=== PATIENT | female | born 1965 | race Caucasian/White ===

== ENCOUNTER 2017-08-20 17:24 | Emergency (ER) | payer BC ==
[~2017-08-20] VITALS: Ht 167.6 cm; Wt 84.8 kg
[~2017-08-20 17:24] MED LIST: CALC500T PO; MAGN250T22 PO
[2017-08-20 17:32] VITALS: TEMP 36.7; Ht 167.6 cm; Wt 84.8 kg
--- NOTE | 2017-08-20 17:52 | EMERGENCY ROOM VISIT NOTE ---
History Report prepared by Dimitris: Justin Owen Under the Supervision of: Dr. Uzair Cam M.D. First contact with patient: 17:38 Chief Complaint: CARDIAC ASSESSMENT Stated Complaint: HEART EPISODES History of Present Illness The patient is a 51 year old female who presents to the Emergency Room with complaints of intermittent heart palpitations that began today. The patient states that she has been having episodes throughout the day that feels as if she has been "falling from a height". She states that the feeling first started when she was in the car and came back when she was sitting in the house. She reports that the episodes have been becoming more frequent this afternoon. The patient states that she has also been experiencing lightheadedness. She reports that she has been experiencing a cough, but reports that this is because she recently had a cold. The patient states that she has had heart flutters in the past, but states that these episodes are not similar. She states that she followed up with a slide attendant for her flutters and denies taking medications. She denies shortness of breath, urinary symptoms, diarrhea, vomiting, change in diet, and caffeine or alcohol use. Source of History: patient Onset: today Position: other (global) Quality: other ("feels like falling from a height") Timing: intermittent Associated Symptoms: + cough, No SOB, No vomiting, No diarrhea, No urinary symptoms Review of Systems See HPI for pertinent positives & negatives. A total of 10 systems reviewed and were otherwise negative. Past Medical & Surgical Medical Problems: (1) Fluttering sensation of heart Family History Cancer Social History Smoking Status: Never Smoker Alcohol Use: occasionally Marital Status: Housing Status: lives with family Occupation Status: employed Current/Historical Medications Scheduled Calcium-Magnesium W/ Vitamin D (Calcium/Magnesium/Vitamin), 1 TAB PO HS [Calcium D Glucarate], 1 CAP PO TID [[id number]], 1 CAP PO TID Scheduled PRN Lorazepam (Lorazepam), 0.5 MG PO DAILY PRN for Anxiety Zolpidem Tartrate (Zolpidem Tartrate), 5 MG PO HS PRN for Sleep Allergies Coded Allergies: Codeine (Verified Allergy, Mild, VOMITING, 11/20/15) Penicillins (Verified Allergy, Mild, RASH, 11/20/15) Ciprofloxacin (Verified Allergy, Unknown, DIZZINESS, 11/12/15) Quinolones (Verified Allergy, Unknown, HIVES, 11/20/15) Physical Exam Vital Signs Date Time Temp Pulse Resp B/P (MAP) Pulse Ox O2 Delivery O2 Flow Rate FiO2 08/20/17 19:06 72 18 145/81 97 Room Air 08/20/17 18:26 97 Room Air 08/20/17 18:04 77 08/20/17 17:59 97 Room Air 08/20/17 17:32 36.7 73 16 161/88 98 Room Air Physical Exam GENERAL: Patient is in no acute distress. HEENT: No acute trauma, normocephalic atraumatic, mucous membranes moist, no nasal congestion, no scleral icterus. NECK: No stridor, no adenopathy, no meningismus, trachea is midline. LUNGS: Clear to auscultation bilaterally, no wheeze, no rhonchi, breath sounds equal. HEART: Slight systolic murmur, regular rate and rhythm. ABDOMEN: Soft, nontender, bowel sounds positive, no hernias, no peritonitis. EXTREMITIES: No cyanosis or edema, full range of motion of all the joints without pain or difficulty, no signs for acute trauma. NEUROLOGIC: Oriented x 3, no acute motor or sensory deficits, no focal weakness. SKIN: No rash, no jaundice, no diaphoresis. Medical Decision & Procedures ER Provider Diagnostic Interpretation: X-ray results as stated below per interpretation by me and the radiologist: CHEST ONE VIEW PORTABLE CLINICAL HISTORY: 51 years-old Female presenting with EVALUATE ALTERED MENTAL STATUS/WEAKNESS. TECHNIQUE: Portable upright AP view of the chest was obtained. COMPARISON: Chest CT from 09/06/2009 and chest x-ray from 09/06/2009. FINDINGS: Cardiomediastinal silhouette normal. Lungs and pleural spaces clear. Osseous structures normal. Upper abdomen normal. IMPRESSION: 1. No acute cardiopulmonary disease. Electronically signed by: Carlitos Escalante M.D. 08/20/2017 7:02 PM Dictated Date/Time: 08/20/2017 7:01 PM Laboratory Results 08/20/17 17:57 Red Blood Count 4.06, Mean Corpuscular Volume 91.9, Mean Corpuscular Hemoglobin 31.3, Mean Corpuscular Hemoglobin Concent 34.0, Mean Platelet Volume 10.4, Neutrophils (%) (Auto) 50.4, Lymphocytes (%) (Auto) 41.1, Monocytes (%) (Auto) 5.1, Eosinophils (%) (Auto) 2.6, Basophils (%) (Auto) 0.7, Neutrophils # (Auto) 3.87, Lymphocytes # (Auto) 3.15, Monocytes # (Auto) 0.39, Eosinophils # (Auto) 0.20, Basophils # (Auto) 0.05 08/20/17 17:57 Test 08/20/17 17:57 08/20/17 18:01 08/20/17 18:15 White Blood Count 7.67 K/uL (4.8-10.8) Red Blood Count 4.06 M/uL (4.2-5.4) Hemoglobin 12.7 g/dL (12.0-16.0) Hematocrit 37.3 % (37-47) Mean Corpuscular Volume 91.9 fL (80-100) Mean Corpuscular Hemoglobin 31.3 pg (25-34) Mean Corpuscular Hemoglobin Concent 34.0 g/dl (32-36) Platelet Count 296 K/uL (130-400) Mean Platelet Volume 10.4 fL (7.4-10.4) Neutrophils (%) (Auto) 50.4 % Lymphocytes (%) (Auto) 41.1 % Monocytes (%) (Auto) 5.1 % Eosinophils (%) (Auto) 2.6 % Basophils (%) (Auto) 0.7 % Neutrophils # (Auto) 3.87 K/uL (1.4-6.5) Lymphocytes # (Auto) 3.15 K/uL (1.2-3.4) Monocytes # (Auto) 0.39 K/uL (0.11-0.59) Eosinophils # (Auto) 0.20 K/uL (0-0.5) Basophils # (Auto) 0.05 K/uL (0-0.2) RDW Standard Deviation 44.6 fL (36.4-46.3) RDW Coefficient of Variation 13.4 % (11.5-14.5) Immature Granulocyte % (Auto) 0.1 % Immature Granulocyte # (Auto) 0.01 K/uL (0.00-0.02) Anion Gap 6.0 mmol/L (3-11) Est Creatinine Clear Calc Drug Dose 74.3 ml/min Estimated GFR () 78.3 Estimated GFR (Non- 67.5 BUN/Creatinine Ratio 24.0 (10-20) Calcium Level 8.8 mg/dl (8.5-10.1) Magnesium Level 2.2 mg/dl (1.8-2.4) Total Bilirubin 0.2 mg/dl (0.2-1) Aspartate Amino Transf (AST/SGOT) 15 U/L (15-37) Alanine Aminotransferase (ALT/SGPT) 23 U/L (12-78) Alkaline Phosphatase 100 U/L (45-117) Total Protein 7.4 gm/dl (6.4-8.2) Albumin 3.7 gm/dl (3.4-5.0) Globulin 3.7 gm/dl (2.5-4.0) Albumin/Globulin Ratio 1.0 (0.9-2) Thyroid Stimulating Hormone (TSH) 2.800 uIu/ml (0.300-4.500) Free Thyroxine 0.86 ng/dl (0.80-1.60) Bedside Troponin I < 0.030 ng/ml (0-0.045) Urine Color YELLOW Urine Appearance CLEAR (CLEAR) Urine pH 7.0 (4.5-7.5) Urine Specific [place] 1.016 (1.000-1.030) Urine Protein NEG (NEG) Urine Glucose (UA) NEG (NEG) Urine Ketones NEG (NEG) Urine Occult Blood NEG (NEG) Urine Nitrite NEG (NEG) Urine Bilirubin NEG (NEG) Urine Urobilinogen NEG (NEG) Urine Leukocyte Esterase SMALL (NEG) Urine WBC (Auto) 1-5 /hpf (0-5) Urine RBC (Auto) 0-4 /hpf (0-4) Urine Hyaline Casts (Auto) 1-5 /lpf (0-5) Urine Epithelial Cells (Auto) 20-30 /lpf (0-5) Urine Bacteria (Auto) NEG (NEG) Laboratory results reviewed by me. ECG Indication: palpitations Rate (beats per minute): 71 Rhythm: normal sinus Findings: no acute ischemic change, no ectopy ED Course 1738: The patient was evaluated in room B03B. A complete history and physical exam was performed. 1917: Reevaluated the patient. Discussed results and discharge instructions: She verbalized understanding and agreement. The patient is ready for discharge. Medical Decision The patient is a 51 year old female who presents to the Emergency Room with complaints of intermittent heart palpitations that began today. Differential diagnoses considered include electrolyte imbalance, anemia, dysrhythmia, PVC or PAC, anxiety, thyroid disorder. There is no leukocytosis or concerning anemia. No significant electrolyte abnormality, kidney failure, hepatitis. The patient appears to be in a euthyroid state. Urinalysis does not show infection. EKG shows a normal sinus rhythm, no acute ischemia. Cardiac enzyme testing 1 is not consistent with acute cardiac injury. Chest film does not show pneumonia, CHF or pneumothorax. There is no significant cardiomegaly. On the monitor, the patient has had some PACs, this may be what she is feeling. Her workup is otherwise benign, she looks well, she is not toxic. She has been reassured. She is being discharged home to return for worsening symptoms. Medication Reconcilliation Current Medication List: was personally reviewed by me Blood Pressure Screening Patient's blood pressure: Elevated blood pressure Blood pressure disposition: Elevated BP felt to be situational Impression Primary Impression: Palpitations Scribe Attestation The scribe's documentation has been prepared under my direction and personally reviewed by me in its entirety. I confirm that the note above accurately reflects all work, treatment, procedures, and medical decision making performed by me. Departure Information Dispostion Home / Self-Care Referrals Sonya Lane (PCP) Forms IMPORTANT VISIT INFORMATION Patient Instructions My [facility] Additional Instructions rest fluids see daisy lino for a recheck this week return if worsening all lab testing and imaging was ok today you had PAC's today on the monitor
[2017-08-20 17:59] VITALS: O2SAT 97
[2017-08-20 18:09] LABS: BASO % 0.7 %; BASO ABS # 0.05 K/uL (0-0.2); EOS % 2.6 %; HEMATOCRIT 37.3 % (37-47); HEMOGLOBIN 12.7 g/dL (12.0-16.0); IG# 0.01 K/uL (0.00-0.02); LYMPH % 41.1 %; LYMPH ABS # 3.15 K/uL (1.2-3.4); MEAN CELL VOLUME 91.9 fL (80-100); MEAN CORPUSCULAR HEMOGLOBIN 31.3 pg (25-34); MEAN PLATELET VOLUME 10.4 fL (7.4-10.4); MONO % 5.1 %; MONO ABS # 0.39 K/uL (0.11-0.59); NEUT % 50.4 %; NEUT ABS # 3.87 K/uL (1.4-6.5); PLATELET COUNT 296 K/uL (130-400); RED CELL DISTRIBUTION WIDTH CV 13.4 % (11.5-14.5); RED CELL DISTRIBUTION WIDTH SD 44.6 fL (36.4-46.3); WHITE BLOOD COUNT 7.67 K/uL (4.8-10.8)
[2017-08-20 18:27] LABS: ALBUMIN 3.7 gm/dl (3.4-5.0); CALCIUM 8.8 mg/dl (8.5-10.1); CREATININE 0.96 mg/dl (0.60-1.20); POTASSIUM 3.8 mmol/L (3.5-5.1)
[2017-08-20] MEDS ORDERED: CALC-206 PO (18:31)
[2017-08-20] MEDS ORDERED: ATV5X PO (18:31)
[2017-08-20] MEDS ORDERED: CALCIUM D GLUCARATE PO (18:31)
[2017-08-20] MEDS ORDERED: [UNRECOGNIZED DRUG - OTHER] PO (18:31)
[2017-08-20] MEDS ORDERED: ZOLP5TAB6 PO (18:31)
[2017-08-20 18:38] LABS: TOTAL PROTEIN 7.4 gm/dl (6.4-8.2)
--- NOTE | 2017-08-20 19:03 | DIAGNOSTIC IMAGING REPORT ---
CHEST ONE VIEW PORTABLE CLINICAL HISTORY: 51 years-old Female presenting with EVALUATE ALTERED MENTAL STATUS/WEAKNESS. TECHNIQUE: Portable upright AP view of the chest was obtained. COMPARISON: Chest CT from 09/06/2009 and chest x-ray from 09/06/2009. FINDINGS: Cardiomediastinal silhouette normal. Lungs and pleural spaces clear. Osseous structures normal. Upper abdomen normal. IMPRESSION: 1. No acute cardiopulmonary disease. Electronically signed by: Carlitos Escalante M.D. 08/20/2017 7:02 PM Dictated Date/Time: 08/20/2017 7:01 PM
[2017-08-20 19:06] VITALS: BP 145/81; PULSE 72; O2SAT 97
[2017-10-02] MEDS ORDERED: ACET300T3 PO (17:28)
== END 2017-08-20 19:24 | disposition home or self-care (01) ==
LOC: C.EDB 17:25
DX: R00.2 Palpitations (principal)

== ENCOUNTER 2017-10-02 14:07 | Emergency (ER) | payer BC ==
[~2017-10-02] VITALS: Ht 165.1 cm; Wt 81.5 kg
[~2017-10-02 14:07] MED LIST changes: +ATV5X PO; +CALC-206 PO; -CALC500T PO; +CALCIUM D GLUCARATE PO; -MAGN250T22 PO; +ZOLP5TAB6 PO; +[UNRECOGNIZED DRUG - OTHER] PO
[2017-10-02 14:54] VITALS: TEMP 37; Ht 165.1 cm; Wt 81.5 kg
[2017-10-02] MEDS ORDERED: MoRPHine SULFATE 10 MG/ML CARP/VIAL IV STA (15:48)
[2017-10-02] MEDS ORDERED: SODIUM CHLORIDE 0.9% 500ML 500 ML IV STA (15:48)
[2017-10-02] MEDS ORDERED: ONDANSETRON INJ 2 MG/ML 2 ML VIAL IV STA (15:48)
[2017-10-02 16:26] LABS: BASO % 0.3 %; BASO ABS # 0.03 K/uL (0-0.2); EOS % 1.1 %; EOS ABS # 0.11 K/uL (0-0.5); HEMATOCRIT 42.5 % (37-47); HEMOGLOBIN 14.7 g/dL (12.0-16.0); IG# 0.02 K/uL (0.00-0.02); LYMPH % 26.2 %; LYMPH ABS # 2.57 K/uL (1.2-3.4); MEAN CELL VOLUME 91.4 fL (80-100); MEAN CORPUSCULAR HEMOGLOBIN 31.6 pg (25-34); MEAN CORPUSCULAR HGB CONC 34.6 g/dl (32-36); MEAN PLATELET VOLUME 10.8 fL (7.4-10.4); MONO % 4.6 %; MONO ABS # 0.45 K/uL (0.11-0.59); NEUT % 67.6 %; NEUT ABS # 6.64 K/uL (1.4-6.5); PLATELET COUNT 300 K/uL (130-400); RED CELL DISTRIBUTION WIDTH CV 13.5 % (11.5-14.5); RED CELL DISTRIBUTION WIDTH SD 44.3 fL (36.4-46.3); WHITE BLOOD COUNT 9.82 K/uL (4.8-10.8)
--- NOTE | 2017-10-02 16:52 | DIAGNOSTIC IMAGING REPORT ---
HEAD WITHOUT CONTRAST (CT) CT DOSE: 601.98 mGy.cm HISTORY: Mental status change JEAN/facial pain TECHNIQUE: Multiaxial CT images of the head were performed without the use of intravenous contrast. A dose lowering technique was utilized adhering to the principles of ALARA. Comparison: 07/10/2008 Findings: The paranasal sinuses and mastoid air cells are clear. The calvarium and skull base are intact. The ventricles and sulci are within normal limits. There is no mass, hematoma, midline shift, or acute infarct. Impression: No acute intracranial abnormality. The above report was generated using voice recognition software. It may contain grammatical, syntax or spelling errors. Electronically signed by: Rafi Gimenez M.D. 10/02/2017 4:50 PM Dictated Date/Time: 10/02/2017 4:48 PM
[2017-10-02 16:54] LABS: CALCIUM 9.3 mg/dl (8.5-10.1); CREATININE 0.82 mg/dl (0.60-1.20); POTASSIUM 3.8 mmol/L (3.5-5.1)
[2017-10-02] MEDS ORDERED: ACET-749 PO (17:28)
[2017-10-02 17:50] VITALS: BP 164/81; PULSE 74; O2SAT 96
--- NOTE | 2017-10-02 19:30 | EMERGENCY ROOM VISIT NOTE ---
History Report prepared by Dimitris: Juan Francisco Tinajero Under the Supervision of: Dr. Sergo Mak D.O. First contact with patient: 15:30 Chief Complaint: SKIN PROBLEM Stated Complaint: SHINGLES IN MY FACE, SEVERE PAIN History of Present Illness The patient is a 52 year old female who presents to the Emergency Room with complaints of left sided face pain that began two days ago. She rates her pain a 10/10 in severity. She denies any known past medical history. When her pain began, her found a small rash to the left side of the patient's mouth and nose which is not present at the moment. She describes her pain as a burning sensation that is hypersensitive and itchy. She then presented to her PCP. She received a negative influenza test and was told that it was probably shingles. She referred the patient to the ER if her symptoms persist without giving the patient anything. She then went to her Dentist who gave her a negative workup. She currently has a headache. Pt denies neck pain, change in vision, fevers, chest pain, shortness of breath, nausea, vomiting, abdominal pain, diarrhea, pain with urination, and melena. Source of History: patient Onset: two days ago Position: other (Right sided face) Symptom Intensity: 10/10 Quality: burning Timing: constant Associated Symptoms: + headache, No fevers, No neck pain, No chest pain, No SOB, No nausea, No vomiting, No abdominal pain, No melena, No diarrhea, No urinary symptoms, No rash Note: She is experiencing itching and hypersensitivity to the area as well. Review of Systems See HPI for pertinent positives & negatives. A total of 10 systems reviewed and were otherwise negative. Past Medical & Surgical Medical Problems: (1) Fluttering sensation of heart Family History Cancer Social History Smoking Status: Never Smoker Alcohol Use: occasionally Marital Status: Housing Status: lives with family Occupation Status: employed Current/Historical Medications Scheduled Calcium-Magnesium W/ Vitamin D (Calcium/Magnesium/Vitamin), 1 TAB PO HS Scheduled PRN Acetaminophen/Codeine (Tylenol W/Codeine #3), 1 TABS PO TID PRN for Pain Allergies Coded Allergies: Codeine (Verified Allergy, Mild, VOMITING, 10/02/17) PT HAS TAKEN TYLENOL W/CODEINE WITH NO PROBLEMS Penicillins (Verified Allergy, Mild, RASH, 11/20/15) Ciprofloxacin (Verified Allergy, Unknown, DIZZINESS, 11/12/15) Quinolones (Verified Allergy, Unknown, HIVES, 11/20/15) Physical Exam Vital Signs Date Time Temp Pulse Resp B/P (MAP) Pulse Ox O2 Delivery O2 Flow Rate FiO2 10/02/17 17:50 74 18 164/81 96 10/02/17 16:16 85 18 153/94 97 Room Air 10/02/17 14:54 37.0 97 18 155/86 96 Room Air Physical Exam GENERAL: Sitting up in bed holding left side of her face, alert, tearful appearing, well nourished, no distress, non-toxic EYE EXAM: normal conjunctiva. PERRL and EOM's grossly intact. OROPHARYNX: no exudate, no erythema, lips, buccal mucosa, and tongue normal and mucous membranes are moist NECK: supple, no nuchal rigidity, no adenopathy, non-tender LUNGS: Clear to auscultation. Normal chest wall mechanics HEART: no murmurs, S1 normal and S2 normal ABDOMEN: abdomen soft, non-tender, normo-active bowel sounds, no masses, no rebound or guarding. BACK: Back is symmetrical on inspection and there is no deformity, no midline tenderness, no CVA tenderness. SKIN: no rashes and no bruising UPPER EXTREMITIES: upper extremities are grossly normal. LOWER EXTREMITIES: No pitting edema. NEURO EXAM: Normal sensorium, cranial nerves II-XII intact, normal speech, no gross weakness of arms, no gross weakness of legs. No drift. Finger to nose intact. Gross sensation intact. Medical Decision & Procedures ER Provider Diagnostic Interpretation: Radiology results as stated below per my review and the radiologist's interpretation: HEAD WITHOUT CONTRAST (CT) CT DOSE: 601.98 mGy.cm HISTORY: Mental status change JEAN/facial pain TECHNIQUE: Multiaxial CT images of the head were performed without the use of intravenous contrast. A dose lowering technique was utilized adhering to the principles of ALARA. Comparison: 07/10/2008 Findings: The paranasal sinuses and mastoid air cells are clear. The calvarium and skull base are intact. The ventricles and sulci are within normal limits. There is no mass, hematoma, midline shift, or acute infarct. Impression: No acute intracranial abnormality. The above report was generated using voice recognition software. It may contain grammatical, syntax or spelling errors. Electronically signed by: Rafi Gimenez M.D. 10/02/2017 4:50 PM Dictated Date/Time: 10/02/2017 4:48 PM Laboratory Results 10/02/17 16:08 Red Blood Count 4.65, Mean Corpuscular Volume 91.4, Mean Corpuscular Hemoglobin 31.6, Mean Corpuscular Hemoglobin Concent 34.6, Mean Platelet Volume 10.8, Neutrophils (%) (Auto) 67.6, Lymphocytes (%) (Auto) 26.2, Monocytes (%) (Auto) 4.6, Eosinophils (%) (Auto) 1.1, Basophils (%) (Auto) 0.3, Neutrophils # (Auto) 6.64, Lymphocytes # (Auto) 2.57, Monocytes # (Auto) 0.45, Eosinophils # (Auto) 0.11, Basophils # (Auto) 0.03 10/02/17 16:08 Test 10/02/17 16:08 White Blood Count 9.82 K/uL (4.8-10.8) Red Blood Count 4.65 M/uL (4.2-5.4) Hemoglobin 14.7 g/dL (12.0-16.0) Hematocrit 42.5 % (37-47) Mean Corpuscular Volume 91.4 fL (80-100) Mean Corpuscular Hemoglobin 31.6 pg (25-34) Mean Corpuscular Hemoglobin Concent 34.6 g/dl (32-36) Platelet Count 300 K/uL (130-400) Mean Platelet Volume 10.8 fL (7.4-10.4) Neutrophils (%) (Auto) 67.6 % Lymphocytes (%) (Auto) 26.2 % Monocytes (%) (Auto) 4.6 % Eosinophils (%) (Auto) 1.1 % Basophils (%) (Auto) 0.3 % Neutrophils # (Auto) 6.64 K/uL (1.4-6.5) Lymphocytes # (Auto) 2.57 K/uL (1.2-3.4) Monocytes # (Auto) 0.45 K/uL (0.11-0.59) Eosinophils # (Auto) 0.11 K/uL (0-0.5) Basophils # (Auto) 0.03 K/uL (0-0.2) RDW Standard Deviation 44.3 fL (36.4-46.3) RDW Coefficient of Variation 13.5 % (11.5-14.5) Immature Granulocyte % (Auto) 0.2 % Immature Granulocyte # (Auto) 0.02 K/uL (0.00-0.02) Erythrocyte Sedimentation Rate 29 mm/hr (0-21) Anion Gap 10.0 mmol/L (3-11) Est Creatinine Clear Calc Drug Dose 82.7 ml/min Estimated GFR () 94.0 Estimated GFR (Non- 81.1 BUN/Creatinine Ratio 16.9 (10-20) Calcium Level 9.3 mg/dl (8.5-10.1) Laboratory results per my review. Medications Administered Medications (Trade) Dose Ordered Sig/Wes Route Start Time Stop Time Status Last Admin Dose Admin Sodium Chloride 500 ml @ 999 mls/hr Q31M STAT IV 10/02/17 15:48 10/02/17 16:18 DC 10/02/17 16:15 999 MLS/HR Ondansetron HCl (Zofran Inj) 4 mg NOW STAT IV 10/02/17 15:48 10/02/17 15:49 DC 10/02/17 16:15 4 MG Morphine Sulfate (MoRPHine SULFATE INJ) 6 mg NOW STAT IV 10/02/17 15:48 10/02/17 15:49 DC 10/02/17 16:16 6 MG ED Course ED COURSE: Vital signs were reviewed and showed situational hypertension The patients medical record was reviewed The above diagnostic studies were performed and reviewed. ED treatments and interventions as stated above. 1530: The patient was evaluated in room B8. A complete history and physical examination was performed. 1548: Ordered Morphine Sulfate 6 mg IV, Zofran Inj 4 mg IV, Sodium Chloride 500 ml @ 999 mls/hr IV 1725: Upon reevaluation, the patient is resting and feeling a lot better. I discussed my findings with the patient and she understands and agrees with the treatment plan. Based on the patients age, coexisting illnesses, exam and lab findings the decision to treat as an outpatient was made. The patient remained stable while under my care. The patient appeared well at the time of discharge. Medical Decision Differential diagnoses include zoster, trauma, fracture, brain bleed, temporal arteritis, and trigeminal neuralgia. Patient is a 52-year-old female who presents to ER for severe left facial pain which has been going on since this past Tuesday. She followed up with her PCP and dentistry. Both workups were unremarkable. Her skin is extremely hypersensitive. She notes that she had a rash which has now resolved over the course of 1-2 days. On exam there is no signs of shingles. I do question shingles first trigeminal neuralgia. CBC and BMP were unremarkable. SED was slightly elevated at 29. Do not believe that this is temporal arteritis. Based on her symptoms I do favor this is likely related to a general neuralgia. She was given IV morphine and felt significant better. I discharged her with Tylenol 3 and instructed to follow-up with PCP in the next 48 hours. There was no change in vision or eye pain. Discussed with Pt concerning signs and symptoms to watch out for. Pt was instructed to follow up with their PCP and discussed with the patient their option to return to the ED at anytime for persistent or worsening symptoms. The appropriate anticipatory guidance and out- patient management, including indications for return to the emergency department , were explained at length to the patient and understood. [place] Drug Monitoring Program Search Results: patient reviewed within database, no issues identified Medication Reconcilliation Current Medication List: was personally reviewed by me Blood Pressure Screening Patient's blood pressure: Elevated blood pressure Blood pressure disposition: Elevated BP felt to be situational Impression Primary Impression: Trigeminal neuralgia of left side of face Scribe Attestation The scribe's documentation has been prepared under my direction and personally reviewed by me in its entirety. I confirm that the note above accurately reflects all work, treatment, procedures, and medical decision making performed by me. Departure Information Dispostion Home / Self-Care Prescriptions Acetaminophen/Codeine (Tylenol W/Codeine #3) 300 Mg/30 Mg Tab 1 TABS PO TID Y for Pain, #10 TAB Prov: Sergo Mak, 10/02/[address] (PCP) Forms HOME CARE DOCUMENTATION FORM, IMPORTANT VISIT INFORMATION, WORK / SCHOOL INSTRUCTIONS Patient Instructions ED Neuralgia Trigeminal, My [facility] Additional Instructions Please follow up with your primary care doctor with in the next 24 hours. Any worsening of your symptoms, please return to the ED immediately. This includes any fevers greater than 100.4, worsening pain, chest pain, shortness breath, persistent nausea, vomiting, unable to eat or drink, or any other concerning signs or symptoms from your standpoint. You were given medications during this visit that will inhibit your ability to drive, operate machinery and work. Please do NOT drive, operate machinery or work for the next 12hrs. You were also given a prescription for a narcotic. While taking this medication you should also not drive, operate machinery and or work. Please make sure you follow up with your PCP over the course of the next 48 hours. Your symptoms could be related to trigeminal neuralgia versus zoster but since you have no rashes at this time I favor thid is less likely zoster.
[2017-10-03] MEDS ORDERED: [UNRECOGNIZED DRUG - OTHER] (21:46)
[2017-10-03] MEDS ORDERED: INDOPOW PO (21:46)
[2017-10-03] MEDS ORDERED: CHOL1TAB52 PO (21:46)
[2017-10-03] MEDS ORDERED: [UNRECOGNIZED DRUG - OTHER] PO (21:46)
[2017-10-03] MEDS ORDERED: [UNRECOGNIZED DRUG - OTHER] PO (21:46)
== END 2017-10-02 17:51 | disposition home or self-care (01) ==
LOC: C.EDB 16:10
DX: G50.0 Trigeminal neuralgia (principal); Z80.9 Family history of malignant neoplasm, unspecified

== ENCOUNTER 2017-10-03 19:19 | Emergency (ER) | payer BC ==
[~2017-10-03] VITALS: Ht 167.6 cm; Wt 81.4 kg
[~2017-10-03 19:19] MED LIST changes: +ACET-749 PO; -ATV5X PO; -CALCIUM D GLUCARATE PO; -ZOLP5TAB6 PO; -[UNRECOGNIZED DRUG - OTHER] PO
[2017-10-03 20:00] VITALS: TEMP 36.9; Ht 167.6 cm; Wt 81.4 kg
[2017-10-03] MEDS ORDERED: DICYCLOMINE HCL 10 MG/ML 2 ML AMP IM STA (21:14)
[2017-10-03] MEDS ORDERED: METOCLOPRAMIDE HCL INJ 5 MG/ML 2 ML VIAL IV STA (21:14)
--- NOTE | 2017-10-03 21:16 | EMERGENCY ROOM VISIT NOTE ---
History Report prepared by Dimitris: Blaise Underwood Under the Supervision of: Dr. Edgar Garcia M.D. First contact with patient: 20:53 Chief Complaint: CONSTIPATION Stated Complaint: BOWL BLACKAGE, NO BOWEL MOVEMENT Nursing Triage Summary: pt states she has had no BM since . recently on tylenol with codein and then at the hospital and given morphine. pt took stool softener, mag citrate, enema with no relief. pt states "i'm uncomfortable, please do something." History of Present Illness The patient is a 52 year old female who presents to the Emergency Room with complaints of persistent constipation that started 4 days ago. She says that she was started having trigeminal neuralgia 3 days ago, and was given Tylenol with Codeine, but ran out of it, and Tylenol was not helping, so she came here last night, and was given Morphine. The patient states that she has not had a bowel movement over the past 4 days, and now cannot even pass any gas. She notes that she has been having intermittent abdominal pain, and was bearing down prior to arrival for over an hour. She says that she was tried Magnesia and an enema earlier today, with no relief. The patient says that she has no history of abdominal surgeries, and still has her appendix and gallbladder. She notes no history of blockages. Source of History: patient Onset: 4 days ago Position: other (global - constipation) Quality: other (no BM in 4 days) Timing: other (persistent) Associated Symptoms: + abdominal pain Note: Associated symptoms: Cannot pass gas currently. Review of Systems See HPI for pertinent positives & negatives. A total of 10 systems reviewed and were otherwise negative. Past Medical & Surgical Medical Problems: (1) Fluttering sensation of heart Family History Cancer Social History Smoking Status: Never Smoker Alcohol Use: occasionally Marital Status: Housing Status: lives with family Occupation Status: employed Current/Historical Medications Scheduled Calcium-Magnesium W/ Vitamin D (Calcium/Magnesium/Vitamin), 1 TAB PO HS Cholecalciferol (D 5000), 5,000 UNITS PO DAILY Zzqurw-3-Qabsesgm (Cutmos-2-Tlrmuodi), 1 CAP PO TID [calcium d gluconate], 1 TAB PO TID [lipid sirt], 1 TAB PO DAILY Scheduled PRN Acetaminophen/Codeine (Tylenol W/Codeine #3), 1 TABS PO TID PRN for Pain Miscellaneous Medications [calcium glucorate] Allergies Coded Allergies: Codeine (Verified Allergy, Mild, VOMITING, 10/03/17) PT HAS TAKEN TYLENOL W/CODEINE WITH NO PROBLEMS Penicillins (Verified Allergy, Mild, RASH, 10/03/17) Ciprofloxacin (Verified Allergy, Unknown, DIZZINESS, 10/03/17) Quinolones (Verified Allergy, Unknown, HIVES, 11/20/15) Physical Exam Vital Signs Date Time Temp Pulse Resp B/P (MAP) Pulse Ox O2 Delivery O2 Flow Rate FiO2 10/04/17 01:33 78 18 124/70 99 10/04/17 00:22 78 18 129/80 98 Room Air 10/03/17 23:09 80 18 138/82 96 Room Air 10/03/17 21:39 72 18 134/76 98 Room Air 10/03/17 20:00 36.9 87 18 134/84 98 Room Air Physical Exam GENERAL: Patient is a healthy-appearing well-nourished 52 year old female. HEAD: Normocephalic atraumatic EYES: Ocular movements intact pupils equal and react to light OROPHARYNX mucous membranes are moist no exudates present no erythema or edema present NECK: Supple no nuchal rigidity CHEST: Good equal expansion LUNGS: Clear and equal to auscultation CARDIAC: Normal S1 and S2 ABDOMEN: Soft nontender no guarding BACK: No CVA tenderness EXTREMITIES: No pain upon palpation normal muscle strength in all groups no clubbing cyanosis or edema NEURO: Patient is following commands and answering questions appropriately. Alert and oriented x3 Cranial Nerves 2-12 grossly intact Medical Decision & Procedures Laboratory Results 10/03/17 21:34 Red Blood Count 4.66, Mean Corpuscular Volume 91.6, Mean Corpuscular Hemoglobin 31.8, Mean Corpuscular Hemoglobin Concent 34.7, Mean Platelet Volume 10.7, Neutrophils (%) (Auto) 76.2, Lymphocytes (%) (Auto) 18.0, Monocytes (%) (Auto) 4.8, Eosinophils (%) (Auto) 0.5, Basophils (%) (Auto) 0.2, Neutrophils # (Auto) 8.40, Lymphocytes # (Auto) 1.98, Monocytes # (Auto) 0.53, Eosinophils # (Auto) 0.06, Basophils # (Auto) 0.02 10/03/17 21:34 Test 10/03/17 21:34 10/03/17 21:47 White Blood Count 11.02 K/uL (4.8-10.8) Red Blood Count 4.66 M/uL (4.2-5.4) Hemoglobin 14.8 g/dL (12.0-16.0) Hematocrit 42.7 % (37-47) Mean Corpuscular Volume 91.6 fL (80-100) Mean Corpuscular Hemoglobin 31.8 pg (25-34) Mean Corpuscular Hemoglobin Concent 34.7 g/dl (32-36) Platelet Count 281 K/uL (130-400) Mean Platelet Volume 10.7 fL (7.4-10.4) Neutrophils (%) (Auto) 76.2 % Lymphocytes (%) (Auto) 18.0 % Monocytes (%) (Auto) 4.8 % Eosinophils (%) (Auto) 0.5 % Basophils (%) (Auto) 0.2 % Neutrophils # (Auto) 8.40 K/uL (1.4-6.5) Lymphocytes # (Auto) 1.98 K/uL (1.2-3.4) Monocytes # (Auto) 0.53 K/uL (0.11-0.59) Eosinophils # (Auto) 0.06 K/uL (0-0.5) Basophils # (Auto) 0.02 K/uL (0-0.2) RDW Standard Deviation 44.3 fL (36.4-46.3) RDW Coefficient of Variation 13.3 % (11.5-14.5) Immature Granulocyte % (Auto) 0.3 % Immature Granulocyte # (Auto) 0.03 K/uL (0.00-0.02) Anion Gap 8.0 mmol/L (3-11) Est Creatinine Clear Calc Drug Dose 75.2 ml/min Estimated GFR () 81.8 Estimated GFR (Non- 70.6 BUN/Creatinine Ratio 15.7 (10-20) Calcium Level 9.2 mg/dl (8.5-10.1) Total Bilirubin 0.3 mg/dl (0.2-1) Direct Bilirubin < 0.1 mg/dl (0-0.2) Aspartate Amino Transf (AST/SGOT) 11 U/L (15-37) Alanine Aminotransferase (ALT/SGPT) 21 U/L (12-78) Alkaline Phosphatase 75 U/L (45-117) Total Protein 7.8 gm/dl (6.4-8.2) Albumin 3.9 gm/dl (3.4-5.0) Lipase 103 U/L (73-393) Urine Color YELLOW Urine Appearance CLEAR (CLEAR) Urine pH 7.5 (4.5-7.5) Urine Specific [place] 1.005 (1.000-1.030) Urine Protein NEG (NEG) Urine Glucose (UA) NEG (NEG) Urine Ketones TRACE (NEG) Urine Occult Blood NEG (NEG) Urine Nitrite NEG (NEG) Urine Bilirubin NEG (NEG) Urine Urobilinogen NEG (NEG) Urine Leukocyte Esterase NEG (NEG) Labs reviewed by ED physician. Medications Administered Medications (Trade) Dose Ordered Sig/Wes Route Start Time Stop Time Status Last Admin Dose Admin Metoclopramide HCl (Reglan Inj) 10 mg NOW STAT IV 10/03/17 21:14 10/03/17 21:16 DC 10/03/17 21:14 10 MG Dicyclomine HCl (Bentyl Inj) 20 mg NOW STAT IM 10/03/17 21:14 10/03/17 21:16 DC 10/03/17 21:14 20 MG Miscellaneous (Soap Suds Enema) 1 ea NOW STAT AL 10/04/17 00:27 10/04/17 00:29 DC 10/04/17 00:27 1 EA Ketorolac Tromethamine (Toradol Inj) 30 mg NOW STAT IV 10/04/17 00:37 10/04/17 00:38 DC 10/04/17 00:37 30 MG ED Course 2109: Past medical records reviewed. The patient was evaluated in room A3. A complete history and physical examination was performed. 2113: Ordered Bentyl Inj 20 mg IM, Reglan Inj 10 mg IV. Medical Decision Differential diagnosis: Etiologies such as functional constipation, impaction, obstruction, volvulus, metabolic abnormality, infection, neurologic, as well as others were entertained. This is a 52-year-old female who presents emergency department complaining of constipation. Due to the nature the patient's complaint she was sent for CAT scan of the abdomen pelvis and given 10 of Reglan. She was also given Bentyl. Repeat examination revealed improvement patient's symptoms. CAT scan does not show any evidence of blockage. She was disimpacted by me. The patient then received an enema. She had successive bowel movement and I believe she can be safely discharged home for follow-up with gastroenterology. Patient was in agreement with the treatment plan. Medication Reconcilliation Current Medication List: was personally reviewed by me Blood Pressure Screening Patient's blood pressure: Elevated blood pressure Blood pressure disposition: Elevated BP felt to be situational Impression Primary Impression: Constipation Scribe Attestation The scribe's documentation has been prepared under my direction and personally reviewed by me in its entirety. I confirm that the note above accurately reflects all work, treatment, procedures, and medical decision making performed by me. Departure Information Dispostion Home / Self-Care Referrals Sonya Lane (PCP) Patient Instructions My [facility] Problem Qualifiers Primary Impression: Constipation Constipation type: unspecified constipation type Qualified Codes: K59.00 - Constipation, unspecified
[2017-10-03] MEDS ORDERED: OPTIRAY 320 IV PRN (21:30)
[2017-10-03 21:44] LABS: BASO % 0.2 %; BASO ABS # 0.02 K/uL (0-0.2); EOS % 0.5 %; EOS ABS # 0.06 K/uL (0-0.5); HEMATOCRIT 42.7 % (37-47); HEMOGLOBIN 14.8 g/dL (12.0-16.0); IG# 0.03 K/uL (0.00-0.02); LYMPH ABS # 1.98 K/uL (1.2-3.4); MEAN CELL VOLUME 91.6 fL (80-100); MEAN CORPUSCULAR HEMOGLOBIN 31.8 pg (25-34); MEAN CORPUSCULAR HGB CONC 34.7 g/dl (32-36); MEAN PLATELET VOLUME 10.7 fL (7.4-10.4); MONO % 4.8 %; MONO ABS # 0.53 K/uL (0.11-0.59); NEUT % 76.2 %; PLATELET COUNT 281 K/uL (130-400); RED CELL DISTRIBUTION WIDTH CV 13.3 % (11.5-14.5); RED CELL DISTRIBUTION WIDTH SD 44.3 fL (36.4-46.3); WHITE BLOOD COUNT 11.02 K/uL (4.8-10.8)
[2017-10-03] MEDS ORDERED: [UNRECOGNIZED DRUG - OTHER] PO (21:46)
[2017-10-03] MEDS ORDERED: [UNRECOGNIZED DRUG - OTHER] (21:46)
[2017-10-03] MEDS ORDERED: INDOPOW PO (21:46)
[2017-10-03] MEDS ORDERED: [UNRECOGNIZED DRUG - OTHER] PO (21:46)
[2017-10-03] MEDS ORDERED: CHOL1TAB52 PO (21:46)
[2017-10-03 22:02] LABS: ALBUMIN 3.9 gm/dl (3.4-5.0); ALT/SGPT 21 U/L (12-78); BLOOD UREA NITROGEN 14 mg/dl (7-18); CALCIUM 9.2 mg/dl (8.5-10.1); CARBON DIOXIDE 29 mmol/L (21-32); CREATININE 0.92 mg/dl (0.60-1.20); GLUCOSE 107 mg/dl (70-99); LIPASE 103 U/L (73-393); POTASSIUM 3.7 mmol/L (3.5-5.1); SODIUM 138 mmol/L (136-145)
[2017-10-03 22:05] LABS: ALKALINE PHOSPHATASE 75 U/L (45-117); AST/SGOT 11 U/L (15-37); TOTAL PROTEIN 7.8 gm/dl (6.4-8.2)
[2017-10-04] MEDS ORDERED: SOAP SUDS ENEMA PR STA (00:27)
[2017-10-04] MEDS ORDERED: KETOROLAC TROMETHAMINE 30 MG/ML VIAL IV STA (00:37)
[2017-10-04] MEDS ORDERED: MAGNESIUM CITRATE 296 ML/BTL PO STA (01:18)
[2017-10-04 01:33] VITALS: BP 124/70; PULSE 78; O2SAT 99
--- NOTE | 2017-10-04 07:59 | DIAGNOSTIC IMAGING REPORT ---
ABDOMEN AND PELVIS CT WITH IV AND ORAL CONTRAST CT DOSE: 552.60 mGy.cm HISTORY: Generalized abdominal pain. TECHNIQUE: Multiaxial CT images of the abdomen and pelvis were performed following the use of intravenous and oral contrast. A dose lowering technique was utilized adhering to the principles of ALARA. COMPARISON STUDY: Abdominal ultrasound 08/10/2012. Abdominal CT 09/06/2009. FINDINGS: The lung bases are clear. Bilateral breast augmentation. The liver, spleen, adrenal glands, pancreas, left kidney are unremarkable. There is a 2.9 cm cyst within the upper pole of the right kidney. No retroperitoneal lymphadenopathy. Normal gallbladder. Bladder is underdistended and not well visualized. Hysterectomy. A few colonic diverticula. No bowel wall thickening or obstruction. IMPRESSION: 1. No bowel wall thickening or obstruction. 2. Colonic diverticulosis. Electronically signed by: Ruben Clements M.D. 10/04/2017 7:58 AM Dictated Date/Time: 10/04/2017 7:43 AM
== END 2017-10-04 01:33 | disposition home or self-care (01) ==
LOC: C.EDB 19:19 → C.EDA 10-04 01:33
DX: K59.00 Constipation, unspecified (principal); R10.9 Unspecified abdominal pain; Z88.0 Allergy status to penicillin; Z88.8 Allergy status to other drugs, medicaments and biological substances

== ENCOUNTER → 2017-12-28 | Outpatient (CLI) | payer BC ==
[~2017-12-28] MED LIST changes: +CHOL1TAB52 PO; +INDOPOW PO; +[UNRECOGNIZED DRUG - OTHER]; +[UNRECOGNIZED DRUG - OTHER] PO; +[UNRECOGNIZED DRUG - OTHER] PO
[2017-12-28 17:17] LABS: HEMATOCRIT 38.1 % (37-47); MEAN CELL VOLUME 90.9 fL (80-100); MEAN CORPUSCULAR HGB CONC 34.1 g/dl (32-36); MEAN PLATELET VOLUME 11.1 fL (7.4-10.4); PLATELET COUNT 307 K/uL (130-400); RED CELL DISTRIBUTION WIDTH CV 13.8 % (11.5-14.5); RED CELL DISTRIBUTION WIDTH SD 46.2 fL (36.4-46.3); WHITE BLOOD COUNT 7.62 K/uL (4.8-10.8)
[2017-12-28 17:29] LABS: BLOOD UREA NITROGEN 19 mg/dl (7-18); CALCIUM 8.7 mg/dl (8.5-10.1); CARBON DIOXIDE 27 mmol/L (21-32); CREATININE 0.79 mg/dl (0.60-1.20); GLUCOSE 95 mg/dl (70-99); POTASSIUM 3.5 mmol/L (3.5-5.1); SODIUM 139 mmol/L (136-145)
== END | disposition home or self-care (01) ==
LOC: C.LABBFT 13:29
PROVIDERS: ATTEND Surgery Surgical Oncology
DX: C50.411 Malignant neoplasm of upper-outer quadrant of right female breast (principal)

== ENCOUNTER → 2018-03-10 | Outpatient (CLI) | payer BC ==
[~2018-03-10] MED LIST changes: -ACET-749 PO; +ACET300T3 PO
== END | disposition home or self-care (01) ==
LOC: C.LABBFT 07:52
PROVIDERS: ATTEND Surgery Surgical Oncology
DX: C50.911 Malignant neoplasm of unspecified site of right female breast (principal)